=== PATIENT | female | born 1975 | race Caucasian/White ===

== ENCOUNTER → 2018-01-12 | Outpatient (CLI) | payer BC ==
[~2018-01-12] MED LIST: Budeprion Xl300 MG PO; Excedrin Extra1 EACH; Inderal80 MG PO; Mobic15 MG PO
== END ==
LOC: LAB SHORT 10:22 → LAB EV 10:22
DX: N12 Tubulo-interstitial nephritis, not specified as acute or chronic (principal)
CPT/HCPCS: 87077; 87086; 87186

== ENCOUNTER → 2021-01-08 | Outpatient (CLI) | payer BC | LOC: LAB SHORT 13:03 | DX: N92.0 Excessive and frequent menstruation with regular cycle (principal) | CPT/HCPCS: 88305 ==

== ENCOUNTER 2022-01-10 08:34 | Day surgery (SDC) | payer BC ==
[~2022-01-10] VITALS: Ht 172.7 cm; Wt 95.3 kg
--- NOTE | 2022-01-10 09:50 | NUR ---
01/10/22 0950 Keila Cooley PT UPDATED REGARDING THE DELAY IN HER CASE. NO NEEDS AT THIS TIME. CALL LIGHT IN REACH.
== END 2022-01-10 12:37 | disposition home or self-care (01) ==
LOC: ORSCSDS 08:34
PROVIDERS: Podiatrist Foot & Ankle Surgery
PROC: 0SGM04Z Fusion of Right Metatarsal-Phalangeal Joint with Internal Fixation Device, Open Approach (ICD-10-PCS; principal; 2022-01-10 10:00)
DX: M20.5X1 Other deformities of toe(s) (acquired), right foot (principal); K21.9 Gastro-esophageal reflux disease without esophagitis; Z79.899 Other long term (current) drug therapy; Z79.82 Long term (current) use of aspirin
CPT/HCPCS: C1713; J0171; J0690; J1100; J1885; J2250; J2405; J2704; J3010; J7120

== ENCOUNTER 2022-05-09 06:21 | Day surgery (SDC) | payer BC ==
[~2022-05-09] VITALS: Ht 170.2 cm; Wt 95.7 kg
--- NOTE | 2022-05-09 07:10 | NUR ---
05/09/22 0710 BRIAN ALLEN pt in pre op - call light within reach.
--- NOTE | 2022-05-09 07:48 | NUR ---
05/09/22 0748 Angel Villalpando ROPIVACAINE 0.2% 20 MLS MIXED W/ 0.10 MLS EPI PER ORDER TO MAKE ROPIVACAINE 0.2% 1:200,000 FOR INJECTION AT [facility] BY DR JACOME. [address] JACOME AT [facility]
--- NOTE | 2022-05-09 09:19 | NUR ---
05/09/22 0919 Ariel Ford 25MCG IV FENTANYL GIVEN AT [address] RHODES ORDERS.
== END 2022-05-09 09:49 | disposition home or self-care (01) ==
LOC: ORSCSDS 06:21
PROVIDERS: Podiatrist Foot & Ankle Surgery
PROC: 0SGN04Z Fusion of Left Metatarsal-Phalangeal Joint with Internal Fixation Device, Open Approach (ICD-10-PCS; principal; 2022-05-09 07:30)
DX: M20.22 Hallux rigidus, left foot (principal); M79.672 Pain in left foot; E66.9 Obesity, unspecified; Z68.33 Body mass index [BMI] 33.0-33.9, adult
CPT/HCPCS: A9270; C1713; J0171; J0690; J1100; J1885; J2250; J2405; J2704; J2795; J3010; J7120

== ENCOUNTER → 2024-08-15 | Outpatient (CLI) | payer OTHER | END | disposition home or self-care (01) | LOC: LAB SHORT 13:51 → LAB 13:51 | DX: L82.1 Other seborrheic keratosis (principal) | CPT/HCPCS: 88305 ==